=== PATIENT | male | born 1970 | race Caucasian/White ===

== ENCOUNTER 2018-01-27 21:13 | Emergency (ER) | END 2018-01-28 | disposition home or self-care (01) ==

== ENCOUNTER 2018-12-23 20:20 | Emergency (ER) | payer SELFPAY ==
[~2018-12-23] VITALS: Ht 165.1 cm; Wt 70.0 kg
[~2018-12-23 20:20] MED LIST: CIPR500T4 PO
[2018-12-23 20:34] VITALS: Ht 165.1 cm; Wt 70.0 kg
[2018-12-23] MEDS ORDERED: LIDOCAINE 2% 20 ML UROJET SYRINGE MM ONE (22:00)
[2018-12-23 22:53] VITALS: BP 145/82; PULSE 76; RESP 18
== END 2018-12-23 23:42 | disposition home or self-care (01) ==
LOC: E/R 20:20
DX: R33.9 Retention of urine, unspecified (principal)
CPT/HCPCS: 36415; 81001; 87086